=== PATIENT | male | born 1985 | race Asian ===

== ENCOUNTER 2017-08-25 16:10 | Emergency (ER) | payer OTHER ==
[~2017-08-25] VITALS: Ht 190.5 cm; Wt 86.2 kg
== END 2017-08-25 16:39 | disposition home or self-care (01) ==
LOC: ED 16:10
DX: R68.83 Chills (without fever) (principal); J02.9 Acute pharyngitis, unspecified; R05 Cough; R09.82 Postnasal drip

== ENCOUNTER 2019-06-10 20:05 | Outpatient (CLI) | payer OTHER | END 2019-06-10 20:15 | disposition short-term general hospital (02) | LOC: AMB 20:05 | DX: R06.02 Shortness of breath (principal); R52 Pain, unspecified; R09.89 Other specified symptoms and signs involving the circulatory and respiratory systems | CPT/HCPCS: A0425; A0429 ==

== ENCOUNTER 2019-06-10 20:20 | Emergency (ER) | payer OTHER ==
[~2019-06-10] VITALS: Ht 190.5 cm; Wt 83.9 kg
[2019-06-10 21:02] LABS: PLATELET COUNT 230 K/uL (142-355)
[2019-06-10 21:07] LABS: POTASSIUM 4.3 mmol/L (3.6-5.2); SODIUM 137 mmol/L (136-145)
[2019-06-10 21:41] LABS: PARTIAL THROMBOPLASTIN TIME 23.4 SECONDS (24.5-33.6)
[2019-06-11 01:30] VITALS: BP 93/63; TEMP 98.5
== END 2019-06-11 01:30 | disposition short-term general hospital (02) ==
LOC: ED 20:20
PROVIDERS: Emergency Medicine Emergency Medical Services
DX: I50.9 Heart failure, unspecified (principal); R00.0 Tachycardia, unspecified; I44.7 Left bundle-branch block, unspecified
CPT/HCPCS: 36415; 36600; 80053; 80307; 81000; 82550; 82805; 83880; 84484; 85027; 85379; 85610; 85730; 93005; 94664; 96374; 96375; 99285; J1940; Q9963

== ENCOUNTER 2019-07-10 20:09 | Observation (INO) | payer OTHER ==
[~2019-07-10] VITALS: Ht 190.5 cm; Wt 70.9 kg
[2019-07-10 20:30] VITALS: BP 111/81; TEMP 102.2
[2019-07-10 20:52] LABS: PLATELET COUNT 210 K/uL (142-355)
[2019-07-10 21:02] LABS: SODIUM 135 mmol/L (136-145)
[2019-07-10 21:25] LABS: PARTIAL THROMBOPLASTIN TIME 26.1 SECONDS (24.5-33.6)
[2019-07-10 23:07] VITALS: BP 99/68; TEMP 98.6
[2019-07-11 00:21] VITALS: BP 99/68; TEMP 99.6
[2019-07-11 04:02] VITALS: BP 102/72; TEMP 97.6
--- NOTE | 2019-07-11 07:27 | NUR ---
0700 IN TO MAKE MORNING ROUNDS. PT LAYING IN BED IN HF. PT FAMILY AT BEDSIDE. PCT IN TO CHECK PT'S MORNING V/S. NAD NOTED.
[2019-07-11 08:00] VITALS: BP 85/55; TEMP 99.2
[2019-07-11 11:56] LABS: SODIUM 135 mmol/L (136-145)
[2019-07-11 12:00] VITALS: BP 84/45; TEMP 99.3
[2019-07-11 16:00] VITALS: BP 103/67; TEMP 98.5
--- NOTE | 2019-07-11 16:40 | NUR ---
1500 IN TO GIVE PT SODIUM BICARB IV SLOW PUSH PER MD ORDERS. PT FAMILY AT BEDSIDE. PT IV FLUSHED WITHOUT DIFFICULTY. BICARB PUSHED OVER 7 MINUTES. IV FLUSHED AGAIN WITH NORMAL SALINE WITHOUT DIFFICULTY. PT C/O PAIN IN THE UPPER ABDOMINAL REGION. INFORMED PT I WOULD CHECK WITH MD TO SEE IF HE COULD HAVE SOMETHING FOR PAIN. MD NOTIFIED. PT NOTIFIED MD WANTS TO WAIT UNTIL CTA REPORT RETURNS BEFORE GIVING PAIN MEDICATION. PT VERBALIZED UNDERSTANDING.
--- NOTE | 2019-07-11 19:12 | NUR ---
AT 1230 PLACED PT ON 2LPM NC BECAUSE OF O2 GOING TO 83% WHILE PT HAVING PERIODS OF SLEEP APNEA. DOCTOR NOTIFIED.
[2019-07-11 20:00] VITALS: BP 102/63; TEMP 98.2
[2019-07-12] VITALS: BP 84/56; TEMP 98.2
--- NOTE | 2019-07-12 00:42 | NUR ---
07/12/19 0035 ER PHYSICAN NOTIFIED OF PT B/P LOW AFTER RECVING LASIX 40MG IV TONIGHT.NEW ORDER TO GIVE BOLUS NS 500ML.VITAL SIGNS 84/56 103 98.2 96 PERCENT OXYGEN.CC
--- NOTE | 2019-07-12 01:56 | NUR ---
07/12/19 0215 IV BOLUS COMPLETED B/P CHECKED WAS 92/57 PT IS SITTING UP IN BED A/O WATCHING T.V. ENCOURAGED TO USE IS WAS ABLE TO GET IT UP TO 2500.TOLD HIM TO KEEP CONTINUED TO USE WHILE HE IS AWAKE.PT VERBALIZED UNDERSTANDING. ORANGE JUICE X 2 CUPS GIVEN AT PATIENT REQUEST.CC
[2019-07-12 04:00] VITALS: BP 101/64; TEMP 98.3
[2019-07-12 06:48] LABS: PLATELET COUNT 206 K/uL (142-355)
[2019-07-12 07:05] LABS: POTASSIUM 3.2 mmol/L (3.6-5.2)
[2019-07-12 08:00] VITALS: BP 98/60; TEMP 99.7
--- NOTE | 2019-07-12 11:46 | NUR ---
1050 PT GIVEN DISCHARGE INSTRUCTIONS. PT EDUCATED ON TAKING AND COMPLETING ANTIBIOTICS. PT GIVEN LIST OF PCP'S TO CHOOSE FROM. PT INSTRUCTED TO CALL SUNDAY AND SCHEDULE A HOSPITAL FOLLOW UP FOR 5-7 DAYS. PT VERBALIZED UNDERSTANDING. 1130 PT AMBULATED OUT PER HIS REQUEST ACCOMPANIED BY HIS FAMILY MEMBER AND PCT. NAD NOTED
== END 2019-07-12 11:30 | disposition home or self-care (01) ==
LOC: ED 20:09 → MED/SURG 21:35
PROVIDERS: Hospitalist; ADMIT Family Medicine
DX: J18.0 Bronchopneumonia, unspecified organism (principal); R07.89 Other chest pain; K72.90 Hepatic failure, unspecified without coma; I50.9 Heart failure, unspecified; Z95.0 Presence of cardiac pacemaker; D64.89 Other specified anemias; I51.7 Cardiomegaly; E87.2 Acidosis
CPT/HCPCS: 36415; 36600; 80053; 80074; 80307; 81000; 82140; 82150; 82550; 82805; 83605; 83690; 83880; 84484; 85027; 85379; 85610; 85730; 86318; 87040; 87338; 87502; 87651; 87899; 93005; 94640; 94664; 94760; 96365; 96366; 96367; 96374; 96375; 99220; 99284; G0378; J1650; J1940; J1956; J2270; Q9963

== ENCOUNTER 2019-07-24 01:21 | Inpatient (IN) | payer OTHER ==
[2019-07-24] VITALS (11 sets, daily range): BP systolic 102–130; BP diastolic 76–97; TEMP 97.6–98.3; Ht 190.5 cm; Wt 71.3 kg
[~2019-07-24] VITALS: Ht 190.5 cm; Wt 71.3 kg
[2019-07-24 02:04] LABS: PLATELET COUNT 299 K/uL (142-355)
[2019-07-24 02:09] LABS: SODIUM 138 mmol/L (136-145)
[2019-07-25 00:29] VITALS: BP 100/76; TEMP 98.2
[2019-07-25 03:49] LABS: PLATELET COUNT 316 K/uL (142-355)
[2019-07-25 04:00] VITALS: BP 114/67; TEMP 98.1
[2019-07-25 04:10] LABS: POTASSIUM 4.5 mmol/L (3.6-5.2)
[2019-07-25 20:00] VITALS: BP 103/58; TEMP 97.6
[2019-07-26] VITALS: BP 96/72; TEMP 98
[2019-07-26 04:00] VITALS: BP 101/66; TEMP 98.4
[2019-07-26 04:41] LABS: PLATELET COUNT 281 K/uL (142-355)
[2019-07-26 05:08] LABS: POTASSIUM 4.1 mmol/L (3.6-5.2)
[2019-07-26 07:56] VITALS: BP 103/69; TEMP 98
== END 2019-07-26 13:05 | disposition home or self-care (01) | DRG 291 ==
LOC: ED 01:21 → MED/SURG 04:32
PROVIDERS: Family Medicine; ADMIT Emergency Medicine
DX: I50.33 Acute on chronic diastolic (congestive) heart failure (principal); J18.8 Other pneumonia, unspecified organism; E87.2 Acidosis; D72.828 Other elevated white blood cell count; Z95.0 Presence of cardiac pacemaker; F19.10 Other psychoactive substance abuse, uncomplicated
CPT/HCPCS: 36415; 80053; 80307; 81000; 82150; 82550; 82553; 83605; 83690; 83880; 84484; 85027; 85379; 87040; 87502; 87651; 93005; 94664; 94760; 96365; 96375; 99284; J0696; J1610; J1650; J1940; J1956; J2930; Q9963

== ENCOUNTER 2019-08-07 14:12 | Emergency (ER) | payer OTHER ==
[~2019-08-07] VITALS: Ht 190.5 cm; Wt 71.2 kg
[2019-08-07 14:56] LABS: PLATELET COUNT 244 K/uL (142-355)
[2019-08-07 15:04] LABS: POTASSIUM 3.6 mmol/L (3.6-5.2); SODIUM 141 mmol/L (136-145)
[2019-08-07 17:10] VITALS: BP 108/76; TEMP 97.9
== END 2019-08-07 17:10 | disposition short-term general hospital (02) ==
LOC: ED 14:12
PROVIDERS: Emergency Medicine
DX: J18.9 Pneumonia, unspecified organism (principal); I42.9 Cardiomyopathy, unspecified; R00.0 Tachycardia, unspecified; Z95.0 Presence of cardiac pacemaker
CPT/HCPCS: 36415; 80053; 83605; 83735; 83880; 84484; 85027; 85379; 87040; 87077; 87185; 87186; 87205; 93005; 96365; 99284; J0696

== ENCOUNTER 2019-08-07 17:09 | Outpatient (CLI) | payer OTHER | END 2019-08-07 18:33 | disposition short-term general hospital (02) | LOC: AMB 17:09 | DX: R07.89 Other chest pain (principal); I42.9 Cardiomyopathy, unspecified; J18.9 Pneumonia, unspecified organism; Z95.0 Presence of cardiac pacemaker | CPT/HCPCS: A0425; A0427 ==

== ENCOUNTER 2019-09-01 22:31 | Inpatient (IN) | payer OTHER ==
[~2019-09-01] VITALS: Ht 193 cm; Wt 74.0 kg
[2019-09-01 22:37] VITALS: BP 156/92; TEMP 99.7
[2019-09-01 23:21] LABS: PLATELET COUNT 383 K/uL (142-355)
[2019-09-01 23:35] LABS: POTASSIUM 4.2 mmol/L (3.6-5.2)
[2019-09-01 23:55] LABS: PARTIAL THROMBOPLASTIN TIME 23.4 SECONDS (24.5-33.6)
[2019-09-02 02:52] VITALS: BP 106/75; TEMP 97.6; Ht 193 cm; Wt 74.0 kg
[2019-09-02 04:00] VITALS: BP 105/65; TEMP 97
[2019-09-02 08:00] VITALS: BP 101/76; TEMP 97.2
[2019-09-02 11:26] LABS: PLATELET COUNT 345 K/uL (142-355)
[2019-09-02 11:44] LABS: POTASSIUM 3.8 mmol/L (3.6-5.2)
[2019-09-02 12:00] VITALS: BP 103/75; TEMP 97.6
[2019-09-02 16:00] VITALS: BP 125/78; TEMP 96.9
[2019-09-02 20:00] VITALS: BP 100/76; TEMP 98.5
[2019-09-03] VITALS: BP 120/81; TEMP 98.6
[2019-09-03 04:00] VITALS: BP 106/78; TEMP 99
[2019-09-03 05:10] LABS: PLATELET COUNT 379 K/uL (142-355)
[2019-09-03 05:50] LABS: POTASSIUM 3.3 mmol/L (3.6-5.2)
[2019-09-03 08:00] VITALS: BP 123/79; TEMP 98.2
[2019-09-03 12:00] VITALS: BP 101/72; TEMP 98.2
[2019-09-03 16:00] VITALS: BP 109/71; TEMP 98.5
[2019-09-03 20:00] VITALS: BP 109/82; TEMP 98
[2019-09-04] VITALS (7 sets, daily range): BP systolic 102–119; BP diastolic 60–91; TEMP 97.4–98.5
[2019-09-04] MEDS ORDERED: METO-837 PO (17:07)
[2019-09-05 03:57] VITALS: BP 111/80; TEMP 98.1
[2019-09-05 05:19] LABS: PLATELET COUNT 448 K/uL (142-355)
[2019-09-05 05:34] LABS: POTASSIUM 4.7 mmol/L (3.6-5.2)
[2019-09-05 08:00] VITALS: BP 109/78; TEMP 98.6
[2019-09-05 12:00] VITALS: BP 110/84; TEMP 97
[2019-09-05 16:00] VITALS: BP 101/79; TEMP 98
[2019-09-05 20:00] VITALS: BP 108/83; TEMP 97.9
[2019-09-06] VITALS: BP 114/83; TEMP 97.2
[2019-09-06 04:00] VITALS: BP 112/77; TEMP 97.7
[2019-09-06 08:00] VITALS: BP 106/80; TEMP 97.6
[2019-09-06 12:00] VITALS: BP 99/81; TEMP 98.6
[2019-09-06 16:00] VITALS: BP 108/82; TEMP 97.4
[2019-09-06 19:54] VITALS: BP 118/83; TEMP 98.2
[2019-09-07] VITALS: BP 112/84; TEMP 97.4
[2019-09-07 04:00] VITALS: BP 123/83; TEMP 97.4
[2019-09-07 05:26] LABS: PLATELET COUNT 418 K/uL (142-355)
[2019-09-07 05:50] LABS: POTASSIUM 4.6 mmol/L (3.6-5.2)
[2019-09-07 08:00] VITALS: BP 116/84; TEMP 97.6
[2019-09-07 12:00] VITALS: BP 111/79; TEMP 98.2
[2019-09-07 16:00] VITALS: BP 108/80; TEMP 97.6
[2019-09-07 20:00] VITALS: BP 125/86; TEMP 97.5
[2019-09-08] VITALS: BP 115/86; TEMP 97.5
[2019-09-08 04:00] VITALS: BP 120/79; TEMP 98.1
[2019-09-08 06:17] LABS: PLATELET COUNT 376 K/uL (142-355)
[2019-09-08 06:31] LABS: POTASSIUM 4.4 mmol/L (3.6-5.2)
[2019-09-08 08:00] VITALS: BP 113/82; TEMP 97.7
[2019-09-08 12:00] VITALS: BP 113/82; TEMP 97.7
[2019-09-08 16:00] VITALS: BP 111/83; TEMP 98.2
== END 2019-09-08 19:28 | disposition short-term general hospital (02) | DRG 291 ==
LOC: ED 22:31 → MED/SURG 09-02 00:52
PROVIDERS: Hospitalist; Internal Medicine; ADMIT Internal Medicine Endocrinology, Diabetes & Metabolism
DX: I11.0 Hypertensive heart disease with heart failure (principal); J18.8 Other pneumonia, unspecified organism; N17.9 Acute kidney failure, unspecified; I50.43 Acute on chronic combined systolic (congestive) and diastolic (congestive) heart failure; Z91.19 Patient's noncompliance with other medical treatment and regimen; R73.9 Hyperglycemia, unspecified; R13.19 Other dysphagia; K31.84 Gastroparesis; I42.8 Other cardiomyopathies; K21.9 Gastro-esophageal reflux disease without esophagitis
CPT/HCPCS: 36415; 80053; 80307; 81000; 82150; 83690; 83880; 84484; 85027; 85610; 85730; 87040; 87070; 87205; 87899; 93005; 94640; 94664; 94760; 96365; 96375; 99284; J1650; J1885; J1940; J1956; J2270; J2405

== ENCOUNTER 2019-09-08 19:07 | Outpatient (CLI) | payer OTHER ==
[~2019-09-08 19:07] MED LIST: METO-837 PO
== END 2019-09-08 20:20 | disposition short-term general hospital (02) ==
LOC: AMB 19:07
DX: J18.8 Other pneumonia, unspecified organism (principal); I44.7 Left bundle-branch block, unspecified; R94.31 Abnormal electrocardiogram [ECG] [EKG]; R05 Cough; R60.0 Localized edema
CPT/HCPCS: A0425; A0427

== ENCOUNTER 2019-09-24 21:52 | Observation (INO) | payer OTHER ==
[~2019-09-24] VITALS: Ht 193 cm; Wt 76.7 kg
[2019-09-24 22:05] VITALS: BP 125/90; TEMP 97.9
[2019-09-24 22:47] LABS: PLATELET COUNT 323 K/uL (142-355)
[2019-09-24 23:22] LABS: POTASSIUM 4.3 mmol/L (3.6-5.2); SODIUM 140 mmol/L (136-145)
[2019-09-25 06:04] VITALS: BP 105/81; TEMP 98.1; Ht 193 cm; Wt 76.7 kg
[2019-09-25] MEDS ORDERED: CARV3.12 PO (06:28)
[2019-09-25] MEDS ORDERED: ASPIRIN 81 LOW81 MG PO (06:29)
[2019-09-25] MEDS ORDERED: ENTRESTO 24-261 TAB PO (06:30)
[2019-09-25] MEDS ORDERED: FURO40TA93 PO (06:32)
[2019-09-25 08:00] VITALS: BP 109/83; TEMP 98.5
[2019-09-25 12:00] VITALS: BP 108/72; TEMP 97.9
[2019-09-25 16:00] VITALS: BP 108/72; TEMP 97.9
[2019-09-25 20:12] VITALS: BP 90/63; TEMP 98.2
[2019-09-26 00:29] VITALS: BP 130/76; TEMP 98.3
[2019-09-26 04:04] VITALS: BP 112/77; TEMP 98.8
[2019-09-26 08:00] VITALS: BP 110/75; TEMP 97.8
[2019-09-26 12:00] VITALS: BP 108/73; TEMP 97.6
[2019-09-26] MEDS ORDERED: PANTOPRAZOLE 40MG TA PO (13:51)
[2019-09-26] MEDS ORDERED: AZIT250T3 PO (13:51)
[2019-09-26] MEDS ORDERED: LEVAQUIN250 MG PO (13:52)
[2019-09-26] MEDS ORDERED: K-TAB20 MEQ PO (13:54)
[2019-09-26] MEDS ORDERED: FURO40TA93 PO (13:54)
== END 2019-09-26 14:00 | disposition home or self-care (01) ==
LOC: ED 21:52 → MED/SURG 09-25 04:50
PROVIDERS: Emergency Medicine; ADMIT Internal Medicine
DX: I50.40 Unspecified combined systolic (congestive) and diastolic (congestive) heart failure (principal); K21.9 Gastro-esophageal reflux disease without esophagitis; K31.84 Gastroparesis; I25.10 Atherosclerotic heart disease of native coronary artery without angina pectoris; I49.8 Other specified cardiac arrhythmias; J18.8 Other pneumonia, unspecified organism
CPT/HCPCS: 80053; 80307; 81000; 82550; 82553; 83605; 83880; 84484; 85027; 85379; 87040; 93005; 94640; 94664; 94760; 96374; 99220; 99284; G0378; J0456; J1650; J1940; J1956; Q9963

== ENCOUNTER 2019-11-11 00:56 | Emergency (ER) | payer OTHER ==
[~2019-11-11] VITALS: Ht 193 cm; Wt 70.3 kg
[~2019-11-11 00:56] MED LIST changes: +ASPIRIN 81 LOW81 MG PO; +AZIT250T3 PO; +CARV3.12 PO; +ENTRESTO 24-261 TAB PO; +FURO40TA93 PO; +K-TAB20 MEQ PO; +LEVAQUIN250 MG PO; +PANTOPRAZOLE 40MG TA PO
[2019-11-11 01:37] LABS: PLATELET COUNT 255 K/uL (142-355)
[2019-11-11 02:26] LABS: POTASSIUM 4.9 mmol/L (3.6-5.2)
[2019-11-11 04:25] VITALS: BP 94/76; TEMP 96.5
== END 2019-11-11 04:25 | disposition short-term general hospital (02) ==
LOC: ED 01:00
PROVIDERS: Family Medicine
PROC: 0D9670Z Drainage of Stomach with Drainage Device, Via Natural or Artificial Opening (ICD-10-PCS; principal; 2019-11-11)
PROC: 0T9B70Z Drainage of Bladder with Drainage Device, Via Natural or Artificial Opening (ICD-10-PCS; 2019-11-11)
DX: C34.90 Malignant neoplasm of unspecified part of unspecified bronchus or lung (principal); C76.2 Malignant neoplasm of abdomen; I50.9 Heart failure, unspecified; Z95.0 Presence of cardiac pacemaker
CPT/HCPCS: 36415; 43754; 51702; 80053; 82150; 82550; 82553; 83605; 83690; 83880; 84484; 85027; 96374; 96375; 99285; J1940; J2405; J3490; Q9963